=== PATIENT | male | born 1950 | race Caucasian/White ===

== ENCOUNTER 2023-02-04 04:54 | Day surgery (SDC) | payer OTHER ==
[2023-02-03 10:57] VITALS: BMI 33.3
[2023-02-04 09:52] VITALS: TEMP 98
[2023-02-04 09:55] VITALS: BP 119/72; PULSE 72; RESP 16
== END 2023-02-04 10:05 | disposition home or self-care (01) ==
LOC: JASU-ENDO 04:54
PROVIDERS: ATTEND Student in an Organized Health Care Education/Training Program
PROC: 0DB78ZX Excision of Stomach, Pylorus, Via Natural or Artificial Opening Endoscopic, Diagnostic (ICD-10-PCS; 2023-02-04)
PROC: 0DB38ZX Excision of Lower Esophagus, Via Natural or Artificial Opening Endoscopic, Diagnostic (ICD-10-PCS; principal; 2023-02-04 09:00)
DX: K29.70 Gastritis, unspecified, without bleeding (principal); K21.00 Gastro-esophageal reflux disease with esophagitis, without bleeding
CPT/HCPCS: 82962; 88305-TC; 88342-TC

== ENCOUNTER 2024-08-22 14:16 | Inpatient (IN) | payer OTHER ==
[2024-08-22 15:19] LABS: BASO % 0.3 % (0-2.0); EOS % 3.3 % (0-4.5); HEMATOCRIT 45.1 % (35.4-49); HEMOGLOBIN 15.1 GM/dL (11.7-16.9); LYMPH % 25.4 % (8-40); MCH 33.8 pg (25.7-33.7); MCHC 33.6 g/dl (32.0-35.9); MEAN CELL VOLUME 100.7 fl (80-96); MEAN PLT VOLUME 8.4 fl (7.5-11.1); MONO % 10.3 % (3.8-10.2); NEUT % 60.7 % (42.8-82.8); PLATELET COUNT 178 10^3/uL (134-434); RBC 4.48 M/mm3 (4.00-5.60); RDW 14.5 % (11.9-15.9); WHITE BLOOD COUNT 6.8 K/mm3 (4.0-10.0)
[2024-08-22 15:26] LABS: INR 1.36 (0.83-1.09); PROTHROMBIN TIME (PATIENT) 15.5 SEC (9.7-13.0)
[2024-08-22 15:28] LABS: ACTIVATED PTT 30.9 SECONDS (25.2-36.5)
[2024-08-22 15:39] LABS: POTASSIUM 4.4 mmol/L (3.5-5.1)
[2024-08-22 15:42] LABS: ALBUMIN 3.4 g/dl (3.4-5.0); MAGNESIUM 2.2 mg/dL (1.8-2.4)
[2024-08-22 15:45] LABS: CREATININE 1.7 mg/dL (0.55-1.3)
[2024-08-22 15:46] LABS: BILIRUBIN,TOTAL 0.8 mg/dL (0.2-1); TOT PROT 7.6 g/dl (6.4-8.2)
[2024-08-22 16:38] LABS: N-TERMINAL BNP 128.8 pg/ml (5-125)
[2024-08-22 19:00] LABS: PH,URINE 5.5 (5.0-8.0); URINE APPEARANCE CLEAR; URINE BILIRUBIN NEGATIVE (NEGATIVE); URINE COLOR YELLOW; URINE GLUCOSE (UA) 3+ (NEGATIVE); URINE KETONE NEGATIVE (NEGATIVE); URINE LEUK ESTERASE NEGATIVE (NEGATIVE); URINE NITRITE NEGATIVE (NEGATIVE); URINE PROTEIN TRACE (NEGATIVE)
[2024-08-22] MEDS ORDERED: ACETAMINOPHEN 325 MG TABLET (FP) PO PRN (21:22)
[2024-08-22] MEDS: DOCUSATE SODIUM 100 MG CAPSULE (FP) PO SCH (22:38)
[2024-08-23 07:52] LABS: POTASSIUM 3.9 mmol/L (3.5-5.1)
[2024-08-23 07:55] LABS: CALCIUM 9.1 mg/dL (8.5-10.1)
[2024-08-23 07:59] LABS: CREATININE 1.3 mg/dL (0.55-1.3); PHOSPHOROUS 3.4 mg/dL (2.5-4.9)
[2024-08-23 08:00] LABS: BILIRUBIN,TOTAL 0.9 mg/dL (0.2-1)
[2024-08-23 08:21] LABS: BASO % 0.3 % (0-2.0); EOS % 4.1 % (0-4.5); HEMATOCRIT 43.1 % (35.4-49); HEMOGLOBIN 14.8 GM/dL (11.7-16.9); LYMPH % 43.3 % (8-40); MCH 34.5 pg (25.7-33.7); MCHC 34.3 g/dl (32.0-35.9); MEAN CELL VOLUME 100.6 fl (80-96); MEAN PLT VOLUME 8.8 fl (7.5-11.1); MONO % 12.6 % (3.8-10.2); NEUT % 39.7 % (42.8-82.8); PLATELET COUNT 168 10^3/uL (134-434); RBC 4.29 M/mm3 (4.00-5.60); RDW 14.4 % (11.9-15.9); WHITE BLOOD COUNT 6.6 K/mm3 (4.0-10.0)
[2024-08-23 10:59] VITALS: BMI 33.3
[2024-08-23] MEDS: CITALOPRAM HYDROBROMIDE 20 MG TABLET PO SCH (11:15)
[2024-08-23] MEDS: ASPIRIN COATED 81 MG TABLET.EC PO SCH (11:16)
[2024-08-23] MEDS: metoPROLOL SUCCINATE 25 MG TAB.SR.24H (FP) PO SCH (11:16)
[2024-08-23] MEDS: APIXABAN 5 MG TABLET PO SCH (11:16)
[2024-08-23] MEDS: PANTOPRAZOLE 40 MG TABLET PO SCH (11:16)
[2024-08-23] MEDS: SODIUM PHOSPHATE/NA BIPHOS 133 ML ENEMA RC ONE (11:18)
[2024-08-23] MEDS: POLYETHYLENE GLYCOL (HEALTHYLAX) 3350 17 GM PACKET PO SCH (11:18)
[2024-08-23] MEDS: SOLIFENACIN SUCCINATE 5 MG TAB PO SCH (11:27)
[2024-08-23] MEDS: ATORVASTATIN CA 20 MG TABLET (FP) PO SCH (21:59)
[2024-08-24 08:11] LABS: N-TERMINAL BNP 68.4 pg/ml (5-125)
[2024-08-24] MEDS: POLYETHYLENE GLYCOL (HEALTHYLAX) 3350 17 GM PACKET PO SCH (12:36)
[2024-08-24] MEDS: SERTRALINE HCL 25 MG TABLET (FP) PO ONE (12:37)
[2024-08-24] MEDS: ARTIFICIAL TEARS OPHTHALMIC DROPS OU PRN (21:32)
[2024-08-25] MEDS: MECLIZINE HCL 25 MG TABLET (FP) PO ONE (05:57)
[2024-08-25] MEDS ORDERED: REGADENOSON 0.4 MG/5 ML PRE-FILLED SYRINGE IVPUSH ONE (09:26)
[2024-08-25] MEDS: REGADENOSON 0.4 MG/5 ML PRE-FILLED SYRINGE IVPUSH ONE (11:00)
[2024-08-25] MEDS: SERTRALINE HCL 25 MG TABLET (FP) PO SCH (12:24)
[2024-08-26] MEDS ORDERED: BISACODYL 10 MG SUPP.RECT PR PRN (11:42)
[2024-08-26 16:01] VITALS: RESP 18
[2024-08-27 01:49] VITALS: BP 119/67; PULSE 63; TEMP 97.5
== END 2024-08-27 05:44 | disposition short-term general hospital (02) | DRG 282 ==
LOC: JER 14:16 → JERBED 19:01 → OBSVTOIN 21:22 → J4W 08-23 09:13
PROVIDERS: ADMIT Internal Medicine; ATTEND Internal Medicine
DX: I21.4 Non-ST elevation (NSTEMI) myocardial infarction (principal); I10 Essential (primary) hypertension; I48.91 Unspecified atrial fibrillation; E78.5 Hyperlipidemia, unspecified; E66.9 Obesity, unspecified; F41.8 Other specified anxiety disorders; E11.9 Type 2 diabetes mellitus without complications; R79.89 Other specified abnormal findings of blood chemistry; R42 Dizziness and giddiness; I44.0 Atrioventricular block, first degree; K59.00 Constipation, unspecified; Z86.711 Personal history of pulmonary embolism; Z86.73 Personal history of transient ischemic attack (TIA), and cerebral infarction without residual deficits; Z68.33 Body mass index [BMI] 33.0-33.9, adult
CPT/HCPCS: 0241U-QW; 36415; 70450-TC; 70551-TC; 71045-TC-FY; 71275-TC; 74174-TC; 78452-TC; 80053; 80061; 81003; 82607; 82962; 83036; 83690; 83735; 83880; 84100; 84439; 84443; 84484; 85025; 85610; 85730; 87086; 93005; 93010; 93017; 93306-TC; 97116-GP; 97162-GP; 99285-25; A9502; G0378; J2785